=== PATIENT | male | born 1980 | race Hispanic/Latino ===

== ENCOUNTER 2019-10-30 23:24 | Emergency (ER) | payer SELFPAY ==
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
[2019-10-31] MEDS ORDERED: TETANUS & DIPHTHERIA TOX,ADULT 0.5 ML VIAL ONE (00:25)
[2019-10-31] MEDS ORDERED: NA CHLORIDE 0.9% 1,000 ML ONE ×2 (00:25→02:01)
[2019-10-31] MEDS ORDERED: CEFAZOLIN SODIUM 1 GM/VIAL ONE (00:25)
[2019-10-31 00:35] LABS: Absolute Lymphocytes (CBC) 2.5 K/uL (0.7-4.9); Basophils % 1.1 % (0-1.3); Lymphocytes % 21.2 % (15.3-44.8); MPV 8.8 fL (7.6-11.3); RBC Red Blood Cell Count 4.91 M/uL (4.33-5.43)
--- NOTE | 2019-10-31 00:48 | EDPHYS ---
Physician Documentation [facility] Name: Nomi Moy Age: 39 yrs Sex: Male : 1980 Arrival Date: 10/30/2019 Time: 23:25 Bed 3 Private MD: ED Physician Luis Giles HPI: 10/29 23:50 This 39 yrs old Male presents to ER via Ambulatory with complaints of cp Laceration To Arm. 23:50 The patient or guardian reports a laceration, irregular. Context: [place] 23:50 Onset: The symptoms/episode began/occurred just prior to arrival. Associated signs and cp symptoms: Pertinent negatives: cyanosis distally, decreased sensation distally, numbness distally. Historical: - Allergies: 23:39 No Known Allergies; ll1 - PMHx: 23:39 Hypertension; ll1 - PSHx: 23:39 Cholecystectomy; ll1 - Immunization history:: Last tetanus immunization: unknown. - Social history:: Smoking status: Patient reports the use of cigarette tobacco products, smokes one pack cigarettes per day. Patient uses alcohol, only on a social basis. Patient/guardian denies using street drugs. ROS: 23:55 Constitutional: Negative for body aches, chills, fever. cp 23:55 Cardiovascular: Negative for chest pain, palpitations. 23:55 Respiratory: Negative for cough, shortness of breath, wheezing. 23:55 Abdomen/GI: Negative for abdominal pain. 23:55 Skin: Positive for laceration(s), of the volar and radial side of left wrist. 23:55 Neuro: Negative for numbness, tingling, weakness. 23:55 All other systems are negative. Exam: 23:59 Constitutional: The patient appears in no acute distress, alert, awake, well developed, cp well nourished. 23:59 Head/Face: Normocephalic, atraumatic. cp 23:59 Chest/axilla: Inspection: normal. 23:59 Cardiovascular: Rate: tachycardic, Rhythm: regular, Pulses: Pulses are 2+ in right radial artery and left radial artery. 23:59 Respiratory: the patient does not display signs of respiratory distress, Respirations: normal, no use of accessory muscles, no retractions. 23:59 Abdomen/GI: Inspection: abdomen appears normal. 23:59 Musculoskeletal/extremity: ROM: full active range of motion, in the left wrist and left hand, Sensation intact. 23:59 Skin: injury, laceration(s), the wound is approximately 2.5 cm(s), of the volar and radial side of left wrist, that can be described as clean, irregular, with moderate bleeding, bleeding appears pulsating and stops when pressure applied to proximal radial artery. 23:59 Neuro: Orientation: to person, place \T\ time. Mentation: is normal. Vital Signs: 23:36 BP 170 / 101; Pulse 102; Resp 18; Temp 98.0; Pulse Ox 98% ; Pain 7/10; ll1 10/30 00:18 Weight 93.44 kg; mw2 00:30 BP 153 / 100; Pulse 82; Resp 16; Pulse Ox 97% on R/A; jb4 01:42 BP 154 / 98; Pulse 79; Resp 16; Pulse Ox 96% on R/A; jb4 MDM: 18 23:43 Patient medically screened. 10/30 00:20 Differential diagnosis: open fracture, closed fracture, contusion, radial artery cp laceration. 00:45 Data reviewed: vital signs, nurses notes, I have discussed the patient's presentation/case with the attending Emergency Department Physician; and as a result, I will transfer patient. 00:50 Physician consultation: was contacted at 00:35, regarding regarding transfer, to [facility]. patient's condition, accepting physician will be DR Buckner. 10/30 00:15 Order name: CBC with Diff; Complete Time: 01:49 10/30 00:15 Order name: BMP; Complete Time: 01:49 cp 10/30 00:07 Order name: XRAY Wrist LEFT 3 view 10/30 00:32 Order name: Type And Screen 10/30 00:32 Order name: PT-INR; Complete Time: 01:49 cp 10/30 00:07 Order name: IV; Complete Time: 00:30 cp 10/30 00:38 Order name: NPO; Complete Time: 00:43 cp Administered Medications: 00:25 Drug: Ancef 1 grams Route: IVPB; Site: right forearm; jb4 00:28 Follow up: Response: No adverse reaction; IV Status: Completed infusion jb4 00:25 Drug: NS 0.9% 1000 ml Route: IV; Rate: 1 bolus; Site: right forearm; jb4 01:15 Follow up: Response: No adverse reaction; IV Status: Completed infusion; IV Intake: jb4 1000ml 00:30 Drug: Tetanus-Diphtheria Toxoid Adult 0.5 ml {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 Exp: rv 05/28/2021. Lot #: [id number]. } Route: IM; Site: right deltoid; 01:00 Follow up: Response: No adverse reaction jb4 00:44 Not Given (Patient Refused): morphine 4 mg IVP once; RASS on ADMIN: Combtv4, Very jb4 Agttd3, Agttd2, Rstlss1, AlertClm0, Drwsy-1, Lt Sdtn-2, Mod Sdtn-3, Dp Sdtn-4, UnArsble-5 01:55 Drug: NS 0.9% 1000 ml Route: IV; Rate: 1 bolus; Site: right forearm; jb4 02:03 Follow up: Response: No adverse reaction; IV Status: Infusion continued upon transfer jb4 Disposition: 01:00 Chart complete. cp 06:16 Co-signature as Attending Physician, Luis Giles MD. 7 Disposition: 10/31/19 00:47 Transfer ordered to [facility]. Diagnosis are Laceration without foreign body of left wrist, Laceration of radial artery at wrist and hand level of left arm. - Reason for transfer: Higher level of care. - Accepting physician is DR Buckner. - Condition is Stable. - Problem is new. - Symptoms have improved. Signatures: Dispatcher [employer] EDMS Elvin Ordaz PA PA cp Bryson, James RN RN jb4 Arjun Ash RN RN rv Lewis, Lynsay RN ZAKIYA 1 Luis Giles MD MD 7 Corrections: (The following items were deleted from the chart) 02:03 00:47 10/31/2019 00:47 Transfer ordered to [facility]. Diagnosis is jb4 Laceration without foreign body of left wrist; Laceration of radial artery at wrist and hand level of left arm. Reason for transfer: Higher level of care. Accepting physician is DR Buckner. Condition is Stable. Problem is new. Symptoms have improved. lliy 18:19 00:50 Physician consultation: was contacted at 00:35, regarding regarding transfer, to lily B[facility]. patient's condition, accepting physician will be lily OROZCO
--- NOTE | 2019-10-31 00:48 | ER ---
Nurse's Notes [facility] Name: Nomi Moy Age: 39 yrs Sex: Male : 1980 Arrival Date: 10/30/2019 Time: 23:25 Bed 3 Private MD: Diagnosis: Laceration without foreign body of left wrist;Laceration of radial artery at wrist and hand level of left arm Presentation: 10/29 23:36 Chief complaint: Patient states: Slipped on [place] 20 min [employer]. Laceration to left ll1 hand, bleeding continuous. Pressure dressing applied, bleeding slowed. PMS intact. Coronavirus screen: Patient denies a cough. Patient denies shortness of breath or difficulty breathing. Patient denies measured and/or subjective temperature greater than 100.4F prior to today's visit. Patient denies travel on a cruise ship or to a country the [facility] currently lists as an affected area. Patient denies contact with known and/or suspected case of COVID-19. Proceed with normal triage. Ebola Screen: Patient denies travel to an Ebola-affected area in the 21 days before illness onset. Complicating Factors: The patient fell landing on an outstretched hand. Initial Sepsis Screen: Does the patient meet any 2 criteria? HR > 90 bpm. No. Patient's initial sepsis screen is negative. Risk Assessment: Do you want to hurt yourself or someone else? Patient reports no desire to harm self or others. Onset of symptoms was October 30, 2019. 23:36 Method Of Arrival: Ambulatory ll1 23:36 Acuity: RADHA 3 ll1 Historical: - Allergies: 23:39 No Known Allergies; ll1 - PMHx: 23:39 Hypertension; ll1 - PSHx: 23:39 Cholecystectomy; ll1 - Immunization history:: Last tetanus immunization: unknown. - Social history:: Smoking status: Patient reports the use of cigarette tobacco products, smokes one pack cigarettes per day. Patient uses alcohol, only on a social basis. Patient/guardian denies using street drugs. Screenin:30 Abuse screen: Denies threats or abuse. Nutritional screening: No deficits noted. jb4 Tuberculosis screening: No symptoms or risk factors identified. Fall Risk None identified. Assessment: 23:30 General: Appears in no apparent distress. uncomfortable, Behavior is calm, cooperative, jb4 appropriate for age. Pain: Complains of pain in lateral aspect of left wrist Pain does not radiate. Pain currently is 7 out of 10 on a pain scale. Quality of pain is described as sharp. Neuro: Level of Consciousness is awake, alert, obeys commands, Oriented to person, place, time, situation. Cardiovascular: Patient's skin is warm and dry. Respiratory: Airway is patent Respiratory effort is even, unlabored, Respiratory pattern is regular, symmetrical. GI: No signs and/or symptoms were reported involving the gastrointestinal system. : No signs and/or symptoms were reported regarding the genitourinary system. EENT: No signs and/or symptoms were reported regarding the EENT system. Derm: Skin is dry, Skin is normal, Skin temperature is warm. Musculoskeletal: Circulation, motion, and sensation intact. Range of motion: intact in all extremities. Injury Description: Laceration sustained to palmar aspect of left wrist is 0.5 to 2.5 cm long, bleeding moderately, was sustained 30-60 minutes ago. is bleeding moderately a dressing was applied. 23:35 Reassessment: pt family called, requesting update on pt status, informed pt family that sg pt is being evaluated by the provider at this time to assess for type of bleeding and injury, pt family stated understanding. 10/30 00:30 Reassessment: Patient appears in no apparent distress at this time. Patient and/or jb4 family updated on plan of care and expected duration. Pain level reassessed. Patient is alert, oriented x 3, equal unlabored respirations, skin warm/dry/pink. Laceration continues to exhibit a moderate amount of pulsatile bleeding. 01:16 Reassessment: Report given to ZAKIYA Parekh at [facility]. jb4 01:56 Reassessment: Patient appears in no apparent distress at this time. Patient and/or jb4 family updated on plan of care and expected duration. Pain level reassessed. Patient is alert, oriented x 3, equal unlabored respirations, skin warm/dry/pink. PT transferred out of ED Via EMS. IV is patent and with NS 0.9 infusing freely. Pt has full range of motion of his left fingers and left hand. Denies numbness or tingling. Has strong engine oiler in the left wrist. Vital Signs: 10/29 23:36 BP 170 / 101; Pulse 102; Resp 18; Temp 98.0; Pulse Ox 98% ; Pain 7/10; ll1 10/30 00:18 Weight 93.44 kg; mw2 00:30 BP 153 / 100; Pulse 82; Resp 16; Pulse Ox 97% on R/A; jb4 01:42 BP 154 / 98; Pulse 79; Resp 16; Pulse Ox 96% on R/A; jb4 ED Course: 10/29 23:25 Patient arrived in ED. do 23:29 Elvin Ordaz PA is PHCP. cp 23:29 Luis Giles MD is Attending Physician. cp 23:30 Casa Lombardi, ZAKIYA is Primary Nurse. jb4 23:30 Patient has correct armband on for positive identification. Bed in low position. Call jb4 light in reach. Side rails up X 1. Pulse ox on. NIBP on. 23:38 Triage completed. ll1 23:39 Arm band placed on Patient placed in an exam room, on a stretcher. ll1 10/30 00:30 Initial lab(s) drawn, by me, sent to lab. Inserted saline lock: 18 gauge in right rv forearm, using aseptic technique. Blood collected. 01:05 XRAY Wrist LEFT 3 view In Process Unspecified. EDMS 01:59 No provider procedures requiring assistance completed. Patient transferred, IV remains jb4 in place. 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 Exp: rv 05/28/2021. Lot #: [id number]. } Route: IM; Site: right deltoid; 01:00 Follow up: Response: No adverse reaction jb4 00:44 Not Given (Patient Refused): morphine 4 mg IVP once; RASS on ADMIN: Combtv4, Very jb4 Agttd3, Agttd2, Rstlss1, AlertClm0, Drwsy-1, Lt Sdtn-2, Mod Sdtn-3, Dp Sdtn-4, UnArsble-5 01:55 Drug: NS 0.9% 1000 ml Route: IV; Rate: 1 bolus; Site: right forearm; jb4 02:03 Follow up: Response: No adverse reaction; IV Status: Infusion continued upon transfer jb4 Intake: 01:15 IV: 1000ml; Total: 1000ml. jb4 Outcome: 00:47 ER care complete, transfer ordered by MD. bautista 01:59 Transferred by ground EMS [facility] to [facility], Transfer form completed. jb4 X-rays sent w/ patient. 01:59 Condition: stable 01:59 Discharge instructions given to patient, Instructed on the need for transfer, Demonstrated understanding of instructions. 02:03 Patient left the ED. jb4 Signatures: Dispatcher [employer] EDMS Merlin Giles, RN RN Elvin Patel PA PA cp Ogletree, Danielle do Bryson, James RN RN jb4 Benito Alvarez 2 Arjun Ash RN RN rv Lewis, Lynsay, RN RN ll1 Corrections: (The following items were deleted from the chart) 00:59 00:30 Reassessment: Patient appears in no apparent distress at this time. Patient jb4 and/or family updated on plan of care and expected duration. Pain level reassessed. Patient is alert, oriented x 3, equal unlabored respirations, skin warm/dry/pink. Laceration is still oozing blood. Pressure bandage reaplied. jb4
[2019-10-31 00:53] LABS: BUN Blood Urea Nitrogen 11 mg/dL (7-18); Bicarbonate 22 mmol/L (21-32); Glucose Level 112 mg/dL (74-106); Potassium 3.5 mmol/L (3.5-5.1); Sodium Level 139 mmol/L (136-145)
[2019-10-31 01:08] LABS: Protime INR 1.08
--- NOTE | 2019-10-31 12:31 | RAD REPORT ---
EXAM DESCRIPTION: RAD - Wrist Left 3 View - 10/31/2019 1:05 am CLINICAL HISTORY: laceration Pain COMPARISON: No comparisons FINDINGS: Soft tissue swelling is present along the wrist region. No acute fracture or foreign body seen.
== END 2019-10-31 02:03 | disposition short-term general hospital (02) ==
LOC: ER 23:24
DX: S65.112A Laceration of radial artery at wrist and hand level of left arm, initial encounter (principal); W26.8XXA Contact with other sharp object(s), not elsewhere classified, initial encounter; Y93.9 Activity, unspecified; Y92.832 Beach as the place of occurrence of the external cause; I10 Essential (primary) hypertension; F17.210 Nicotine dependence, cigarettes, uncomplicated; Z23 Encounter for immunization
CPT/HCPCS: 36415; 80048; 85025; 85610; 86850; 86900; 86901; 90471; 90714; 96361; 96374; 99285; G0390; J0690; J7030

== ENCOUNTER 2024-04-16 15:07 | Emergency (ER) | payer OTHER ==
--- OUTSIDE RECORDS SUMMARY | 2024-04-16 15:09 | XMS REPORT | Continuity of Care Document ---
Author Name Unknown Address [address] [facility] [address] th[address] Address [address] [facility] [address] [place] [address] Care Team Providers Care Counter Control Operator Name Role Phone ZOHAIB ARAYA Primary Care Physician Unavailab YUMIKO Valentine Attending Clinician Unavailable Stephie Lua NP Attending Clinician Yumiko Carrillo NP Attending Clinician BRANDYN NICOLAS Attending Clinician Un available STEPHIE LUA Admitting Clinician Unavailable ELÍAS CORNELL Admitting Clinician Unavelia myers Payers Payer Name Policy Type Policy Number Effective Date Expirati on Date Source [facility] PPO/POS [id number] 2023 00:00:00 Problems Condition Name Condition Details Condition Category Status Onset Date Resolution Date Last Treatment Date Treating Clinician Comments Source Enterocoli tis Enterocoli tis Disease Active 11-20 00:00: 00 [facility] Allergies, Adverse Reactions, Alerts Allergy Name Allergy Type Status Severity Reaction(s) Onset Date Inactive Date Treating Clinician Comments Source NO KNOWN ALLERGIE S Drug Class Active [facility] Social History Social Habit Start Date Stop Date Quantity Comments Source Sexual orientation U [facility] Sex assigned at 1980 00:00:00 1980 00:00:00 [facility] Smoking Status Start Date Stop Date Source Tobacco smoking consumption unknown [facility] Medications Ordered Medication Name Filled Medication Name Start Date Stop Date Current Medication? Ordering Clinician Indication Dosage Frequency Signature (SIG) Comments Components Source dicyclomine (BENTYL) injection 20 mg 11-21 01:45: 00 11-21 01:00 :00 No 20mg 20 mg, Intramuscu lar, ONCE NOW, 1 dose, On Fri11/21/23 at 204, Routine [facility] diphenhydrA MINE:lidoca ine 2% viscous:maa lox 1:1:1 (FIRST-MOUT HWASH BLM) oral suspension 15 mL 11-21 01:00: 00 11-21 01:00 :00 No 15mL 15 mL, Oral, ONCE, 1 dose, On Fri11/21/23 at 1999, Routine [facility] iopamidol (ISOVUE 370-500 mL) injection 85 mL 11-21 00:00: 00 11-21 00:15 :00 No [id number] 85mL 85 mL, Intravenou s, ONCE, 1 dose, On Fri11/21/23 at 1915, Routine [facility] ondansetron (ZOFRAN (PF)) injection 4 mg 11-20 22:30: 00 11-20 23:05 :00 No 4mg 4 mg, Slow IV Push, ONCE, 1 dose, On Fri11/21/23 at 1730, [facility] famotidine (PEPCID (PF)) injection 20 mg 11-20 22:30: 00 11-20 23:05 :00 No 20mg 20 mg, Slow IV Push, ONCE, 1 dose, On Fri11/21/23 at 1730, [facility] dicyclomine 20 mg tablet 11-20 00:00: 00 Yes [id number] 20mg Take 1 tablet by mouth 4 (four) times daily as needed for Abdominal pain. [facility] metroNIDAZO LE 500 mg tablet 11-20 00:00: 00 Yes [id number] 500mg Take 1 tablet by mouth in the morning and 1 tablet in the evening. [facility] ciprofloxac in HCl 500 mg tablet 11-20 00:00: 00 11-28 04:59 :00 No [id number] 500mg Take 1 tablet by mouth in the morning and 1 tablet in the evening. Do all this for 7 days. [facility] Vital Signs Vital Name Observation Time Observation Value Comments S ource Systolic blood pressure 2023-11-22 02:00:00 117 mm[Hg] [facility] Diastolic blood pressure 2023-11-22 02:00:00 83 mm[Hg] [facility] Heart rate 2023-11-22 02:00:00 74 /min [facility] Body temperature 2023-11-22 02:00:00 37.44 Netta [facility] Respiratory rate 2023-11-22 02:00:00 24 /min [facility] Oxygen saturation in Arterial blood by Pulse oximetry 2023-11-22 02:00:00 96 /min [facility] Body height 2023-11-21 21:58:00 175.3 cm [facility] Body weight 2023-11-21 21:58:00 90.719 kg [facility] BMI 2023-11-21 21:58:00 29.53 kg/m2 [facility] Procedures Procedure Date / Time Performed Performing Clinicia n Source CT ABDOMEN PELVIS W CONTRAST 2023-11-22 00:07:55 Stephie Lua [facility] LIPASE 2023-11-21 23:04:00 Stephie Lua [facility] TROPONIN I 2023-11-21 23:04:00 Stephie Lua [facility] COMP. METABOLIC PANEL ([id number]) 2023-11-21 23:04:00 Stephie Lua [facility] CBC WITH DIFF 2023-11-21 23:04:00 Stephie Lua [facility] URINALYSIS 2023-11-21 23:04:00 Stephie Lua [facility] Encounters Start Date/Time End Date/Time Encounter Type Admission Type Attending Clinicians Care Facility Care Department Encounter ID Source 2023-11-21 17:01:00 2023-11-21 22:02:00 Emergency YUMIKO MYERS [facility] ERT [id number] [facility] 2023-11-21 17:01:00 2023-11-21 22:02:00 Emergency Stephie Lua Katherine [facility] [id number] [facility] 2019-10-31 01:46:00 2019-10-31 04:19:00 Emergency E BRANDYN NICOLAS [facility] [address] [facility] Results Test Description Test Time Test Comments Results Result Comments Source CT ABDOMEN PELVIS W CONTRAST 02:31:50 ORDERING PHYSICIAN:STEPHIE GRIMALDO CLINICAL INFORMATION: ? Abdominal abscess/infection suspected COMPARISON: None Technique: ? CT of the abdomen and pelvis was performed after theadministration of IV contrast. No p.o. contrast was used. Multiplanarreformats were also obtained. This study was performed according to ALARAprinciple for radiation dose reduction. Findings: There is no evidence of obstructive uropathy. No suspicious renalparenchymal abnormalities are seen. Liver shows evidence of fattyinfiltration. Gallbladder surgically absent. Spleen, adrenal glands, andpancreas show no evidence of gross abnormalities. There is no bowelobstruction. Appendix is normal. There is mild mucosal edema involving thedistal small bowel and proximal colon. No free intraperitoneal air or fluidare present. No pathologically enlarged lymph nodes are seen. There is a1.4 cm noncalcified pulmonary nodule seen posteriorly in the right lungbase. There are no suspicious focal osseous lesions. [facility] ([id number][facility]2023-11-21 23:33:38* Test Item Value Reference Range Interpretation Comme nts NA (test code = 1496545602) 139 mmol/L 135-145 K (test code = 6000734496) 3.9 mmol/L 3.5-5.0 CL (test code = 2158089045) 103 mmol/L 98-108 CO2 TOTAL (test code = 0427138440) 25 mmol/L 23-31 AGAP (test code = 2928774357) 11 2-16 BUN (test code = 8816623665) 13 mg/dL 7-23 GLUCOSE (test code = 3099222028) 126 mg/dL 70-110 H CREATININE (test code = 2160-0) 0.79 mg/dL 0.60-1.25 TOTAL BILI (test code = 2070442253) 0.8 mg/dL 0.1-1.1 CALCIUM (test code = 3667412485) 9.4 mg/dL 8.6-10.6 T PROTEIN (test code = 7763526767) 8.7 g/dL 6.3-8.2 H ALBUMIN (test code = 5422124942) 4.9 g/dL 3.5-5.0 ALK PHOS (test code = 3189739372) 81 U/L 34-122 ALTv (test code = 1742-6) 35 U/L 5-50 AST(SGOT) (test code = 0440367526) 30 U/L 13-40 eGFR (test code = 11698-8) 113.0 mL/min/1.73m2 CKD-EPI eGFR (2020). Assuming creatinine has been stable day-to-day for at least three months, the eGFR indicates Category G1 (>= 90 mL/min/1.73 m2) Lab Interpretation (test code = 47273-9) [facility]* Test Item Value Reference Range Interpretation Comme nts LIPASE (test code = 1842441234) 69 U/L 0-220 Lab Interpretation (test cod e = 09327-0) [facility] [id number] 23:22:52* Test Item Value Reference Range Interpretation Comme nts WBC (test code = 6690-2) 10.77 4.20-10.70 H RBC (test code = 789-8) 5.26 4.26-5.52 HGB (test code = 718-7) 16.7 g/dL 12.2-16.4 H HCT (test code = 4544-3) 48.3 % 38.4-49.3 MCV (test code = 787-2) 91.8 fL 81.7-95.6 MCH (test code = 785-6) 31.7 pg 26.1-32.7 MCHC (test code = 786-4) 34.6 g/dL 31.2-35.0 RDW-SD (test code = 77921-6) 42.0 fL 38.5-51.6 RDW-CV (test code = 788-0) 12.5 % 12.1-15.4 PLT (test code = 777-3) 243 150-328 MPV (test code = 06589-7) 9.9 fL 9.8-13.0 NRBC/100 WBC (test code = 9939819786) 0.0 0.0-10.0 NRBC x10^3 (test code = 9895677440) See_Comment [Automated messa ge] The system which generated this result transmitted reference range: 10*3/?L. The reference range was not used to interpret this result as normal/abnormal. GRAN MAT (NEUT) % (test code = 770-8) 78.5 % IMM GRAN % (test code = 8367746476) 0.40 % LYMPH % (test code = 736-9) 13.4 % MONO % (test code = 5905-5) 6.9 % EOS % (test code = 713-8) 0.5 % BASO % (test code = 706-2) 0.3 % GRAN MAT x10^3(ANC) (test code = 5616618163) 8.47 10*3/uL 1.99-6.95 H IMM GRAN x10^3 (test code = 5938990110) 0.04 10*3/uL 0.00-0.06 LYMPH x10^3 (test code = 731-0) 1.44 10*3/uL 1.09-3.23 MONO x10^3 (test code = 742-7) 0.74 10*3/uL 0.36-1.02 EOS x10^3 (test code = 711-2) 0.05 10*3/uL 0.06-0.53 L BASO x10^3 (test code = 704-7) 0.03 10*3/uL 0.01-0.09 Lab Interpretation (test code = 64371-1) Abnormal [facility]
--- NOTE | 2024-04-16 15:47 | RAD REPORT ---
Procedure: Chest Pa And Lat (2 Views) HISTORY: Cough COMPARISON: 2017 FINDINGS: The lungs appear clear of acute infiltrate. No significant pleural effusion noted. The heart is normal size. IMPRESSION: No acute abnormality is displayed.
--- NOTE | 2024-04-16 16:20 | EDPHYS ---
Physician Documentation [facility] Name: Nomi Moy Age: 43 yrs Sex: Male : 1980 Arrival Date: 04/16/2024 Time: 15:07 Bed 9 Private MD: ED Physician Elvin Carter HPI: 04/16 16:20 This 43 yrs old Male presents to ER via Ambulatory with complaints of dr5 Breathing Difficulty, SWALLOWED INSULATION. 16:20 The patient has shortness of breath while working. 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 Patient reports that he had a coughing fit that likely remove the insulation. Patient's only complaint is feeling funny in the back of his throat.. Historical: - Allergies: 15:23 No Known Allergies; db - PMHx: 15:23 Hypertension; Diabetes mellitus; db - Immunization history:: Adult Immunizations unknown. - Infectious Disease History:: Denies. - Social history:: Smoking status: Patient reports the use of cigarette tobacco products, smokes one pack cigarettes per day. ROS: 16:20 Constitutional: as per hpi dr5 Exam: 16:20 Constitutional: This is a well developed, well nourished patient who is awake, alert, dr5 and in no acute distress. Head/Face: Normocephalic, atraumatic. Eyes: Pupils equal round and reactive to light, extra-ocular motions intact. Lids and lashes normal. Conjunctiva and sclera are non-icteric and not injected. Cornea within normal limits. Periorbital areas with no swelling, redness, or edema. Neck: Trachea midline, no thyromegaly or masses palpated, and no cervical lymphadenopathy. Supple, full range of motion without nuchal rigidity, or vertebral point tenderness. No Meningismus. Cardiovascular: Regular rate and rhythm with a normal S1 and S2. Normal PMI, no JVD. No pulse deficits. Respiratory: Lungs have equal breath sounds bilaterally, clear to auscultation. No rales, rhonchi or wheezes noted. No increased work of breathing, no retractions or nasal flaring. Abdomen/GI: Soft, non-tender, non-distended Skin: Warm, dry with normal turgor. Normal color with no rashes, no lesions, and no evidence of cellulitis. MS/ Extremity: Pulses equal, no cyanosis. Neurovascular intact. Full, normal range of motion. Neuro: Awake and alert, GCS 15, oriented to person, place, time, and situation. Cranial nerves II-XII grossly intact. Motor strength 5/5 in all extremities. Sensory grossly intact. Cerebellar exam normal. Normal gait. 16:20 ENT: Posterior pharynx: Airway: normal, no evidence of obstruction, Tonsils: are normal in appearance, erythema, that is mild, Vital Signs: 15:20 BP 145 / 90; Pulse 102; Resp 18; Temp 98.1; Pulse Ox 96% ; Weight 97.52 kg; Height 5 db ft. 9 in. ; Pain 0/10; 16:29 BP 139 / 76; Pulse 92; Resp 18; Pulse Ox 97% on R/A; ld1 15:20 Body Mass Index 31.75 (97.52 kg, 175.26 cm) db 15:20 Pain Scale: Adult db MDM: 15:25 Medical Screening Exam initiated dr5 16:20 Differential diagnosis: Pneumonia, foreign body, pharyngitis. Antibiotic dr5 administration: Not indicated, the patient does not have an appreciated infiltrate. Data reviewed: vital signs, nurses notes. Historians other than the Patient: Spouse/Significant Other: Spouse. Care significantly affected by the following chronic conditions: Diabetes, Hypertension. Care significantly affected by the following Social Determinants of Health: Poor access to healthcare and/or lack of insurance, Poor access to transportation, Problems related to employment. Counseling: I had a detailed discussion with the patient and/or guardian regarding the historical points, exam findings, and any diagnostic results supporting the discharge/admit diagnosis, the presence of at least one elevated blood pressure reading (>120/80) during this emergency department visit, radiology results, the need for outpatient follow up, for definitive care, a family practitioner, to return to the emergency department if symptoms worsen or persist or if there are any questions or concerns that arise at home. ED course: Patient reports his pain has resolved and is feeling better on discharge. Recommended increasing hydration, alternating Tylenol Motrin as needed for pain and fever, Benadryl for itching. All questions answered. Will have patient follow-up with PCP. Return to ER if worsening conditions.. 01/03 15:23 Order name: Chest Pa And Lat (2 Views) XRAY; Complete Time: 15:50 dr5 04/16 15:23 Order name: EKG; Complete Time: 15:24 dr5 04/16 15:23 Order name: EKG - Nurse/Tech; Complete Time: 16:03 dr5 EC:01 Rate is 91 beats/min. Rhythm is regular. QRS [place] is Normal. ME interval is normal at dr5 170 msec. QRS interval is normal at 110 msec. QT interval is normal at 356 msec. Administered Medications: No medications were administered Disposition Summary: 04/16/24 16:20 Discharge Ordered Notes: Location: Home dr5 Condition: Stable dr5 Diagnosis - Acute pharyngitis, unspecified dr5 Followup: dr5 - With: Emergency Department - When: As needed - Reason: Worsening of condition Followup: dr5 - With: Private Physician - When: 1 - 2 days - Reason: Recheck today's complaints, Continuance of care, Re-evaluation by your physician Discharge Instructions: - Discharge Summary Sheet dr5 - Upper Respiratory Infection, Adult dr5 Forms: - Medication Reconciliation Form dr5 - Patient Portal Instructions dr5 - Leadership Thank You Letter dr5 Addendum: 04/20/2024 15:32 Co-signature as Attending Physician, Elvin Carter MD I agree with the assessment and c alvarez plan of care. Signatures: Dispatcher [employer] Elvin Mora MD MD cha Benton, Danielle, RN RN Kevin Herrmann, PLASMA TABLE OPERATOR-C PLASMA TABLE OPERATOR-Cdr5
--- NOTE | 2024-04-16 16:20 | ER ---
Nurse's Notes [facility] Name: Nomi Moy Age: 43 yrs Sex: Male : 1980 Arrival Date: 04/16/2024 Time: 15:07 Bed 9 Private MD: Diagnosis: Acute pharyngitis, unspecified Presentation: 04/16 15:22 Chief complaint: Patient states: FEELS LIKE INHALED AND SWALLOWED INSULATION WHILE IN db ATTIC. FEELS LIKE HAS DIFFICULTY BREATHING BECAUSE OF IT. Coronavirus screen: Client denies travel out of the [place] in the last 14 days. At this time, the client does not indicate any symptoms associated with coronavirus-19. Ebola Screen: Patient negative for fever greater than or equal to 101.5 degrees Fahrenheit, and additional compatible Ebola Virus Disease symptoms Patient denies exposure to infectious person. Patient denies travel to an Ebola-affected area in the 21 days before illness onset. No symptoms or risks identified at this time. Initial Sepsis Screen: Does the patient meet any 2 criteria? No. Patient's initial sepsis screen is negative. Does the patient have a suspected source of infection? No. Patient's initial sepsis screen is negative. Risk Assessment: Do you want to hurt yourself or someone else? Patient reports no desire to harm self or others. Onset of symptoms was April 16, 2024. 15:22 Method Of Arrival: Ambulatory db 15:22 Acuity: RADHA 3 db Triage Assessment: 15:23 General: Appears in no apparent distress. uncomfortable, Behavior is calm, cooperative. db Pain: Denies pain. Neuro: Level of Consciousness is awake, alert, obeys commands, Oriented to person, place, time. Respiratory: Reports shortness of breath Onset: The symptoms/episode began/occurred suddenly, the patient has mild shortness of breath. Historical: - Allergies: 15:23 No Known Allergies; db - PMHx: 15:23 Hypertension; Diabetes mellitus; db - Immunization history:: Adult Immunizations unknown. - Infectious Disease History:: Denies. - Social history:: Smoking status: Patient reports the use of cigarette tobacco products, smokes one pack cigarettes per day. Screenin:29 [facility] ED Fall Risk Assessment (Adult) History of falling in the last 3 months, ld1 including since admission No falls in past 3 months (0 pts) Confusion or Disorientation No (0 pts) Intoxicated or Sedated No (0 pts) Impaired Gait No (0 pts) Mobility Assist Device Used No (0 pt) Altered Elimination No (0 pt) Score/Fall Risk Level 0 - 2 = Low Risk Oriented to surroundings, Maintained a safe environment, Educated pt \T\ family on fall prevention, incl call for assistance when getting out of bed, Assessed \T\ reinforced patient's understanding of fall precautions, Provided non-skid footwear, Hourly rounding (assess needs \T\ fall precautionary measures) done, Used ambulatory aids as needed (educated on \T\ assisted with), Used gait belt as appropriate. Abuse screen: Denies threats or abuse. Denies injuries from another. Nutritional screening: No deficits noted. Tuberculosis screening: No symptoms or risk factors identified. Assessment: 15:50 General: Appears in no apparent distress. comfortable, Behavior is calm, cooperative, ld1 appropriate for age. Pain: Denies pain. Neuro: Level of Consciousness is awake, alert, obeys commands, Oriented to person, place, time, situation. Cardiovascular: Capillary refill < 3 seconds Patient's skin is warm and dry. Rhythm is sinus rhythm. Respiratory: Airway is patent Respiratory effort is even, unlabored, Breath sounds are clear bilaterally. GI: Abdomen is flat, non-distended. : No signs and/or symptoms were reported regarding the genitourinary system. EENT: No signs and/or symptoms were reported regarding the EENT system. Derm: No signs and/or symptoms reported regarding the dermatologic system. Musculoskeletal: No signs and/or symptoms reported regarding the musculoskeletal system. 16:29 Reassessment: Patient appears in no apparent distress at this time. No changes from ld1 previously documented assessment. Patient and/or family updated on plan of care and expected duration. Pain level reassessed. Patient is alert, oriented x 3, equal unlabored respirations, skin warm/dry/pink. Vital Signs: 15:20 BP 145 / 90; Pulse 102; Resp 18; Temp 98.1; Pulse Ox 96% ; Weight 97.52 kg; Height 5 db ft. 9 in. ; Pain 0/10; 16:29 BP 139 / 76; Pulse 92; Resp 18; Pulse Ox 97% on R/A; ld1 15:20 Body Mass Index 31.75 (97.52 kg, 175.26 cm) db 15:20 Pain Scale: Adult db ED Course: 15:11 Patient arrived in ED. sj2 15:12 Kevin Melo [facility]NP-C [facility]. [facility] 15:12 Elvin Carter MD is Attending Physician. dr5 15:23 Triage completed. db 15:23 Arm band placed on left wrist. db 15:40 Suha Red, RN is Primary Nurse. ld1 15:44 Chest Pa And Lat (2 Views) XRAY In Process Unspecified. EDMS 16:29 Patient has correct armband on for positive identification. Placed in gown. Bed in low ld1 position. Call light in reach. Side rails up X2. Pulse ox on. NIBP on. Door closed. Noise minimized. Warm blanket given. 16:29 No provider procedures requiring assistance completed. Patient did not have IV access ld1 during this emergency room visit. Administered Medications: No medications were administered Medication: 16:29 VIS not applicable for this client. ld1 Outcome: 16:20 Discharge ordered by . dr5 16:29 Discharged to home ambulatory, ld1 16:29 Condition: stable 16:29 Discharge instructions given to patient, Instructed on discharge instructions, follow up and referral plans. Demonstrated understanding of instructions, follow-up care, 16:30 Patient left the ED. ld1 Signatures: Dispatcher [employer] EDAR Suha Red, RN RN ld1 Leah Casanova RN RN db Jeanmarie Palma sj2 Kevin Melo FNP-C HEAD OF VISUAL MERCHANDISING-Cdr5
[2024-04-16 16:41] VITALS: TEMP 98.1
[2024-04-16 16:42] VITALS: BP 139/76; O2SAT 97
--- NOTE | 2024-04-26 11:20 | EKG ---
Test Date: 2024-04-16 Test Time: 16:01:19 Employment Representative: Manohar PETERSEN MEASUREMENT RESULTS: Intervals: Rate: 91 HI: 170 QRSD: 110 QT: 356 QTc: 437 [facility]: P: 60 HI: 170 QRS: -82 T: 24 INTERPRETIVE STATEMENTS: Normal sinus rhythm Right bundle branch block Left anterior fascicular block Bifascicular block Septal infarct, age undetermined Abnormal ECG Compared to ECG 09/11/2016 19:56:04 Right bundle-branch block now present Bifascicular block now present Myocardial infarct finding now present Incomplete right bundle-branch block no longer present Electronically Signed On 04-26-24 11:06:19 CASK MAKER by Danis Lucia
== END 2024-04-16 16:30 | disposition home or self-care (01) ==
LOC: ER 15:07
DX: J02.9 Acute pharyngitis, unspecified (principal); F17.210 Nicotine dependence, cigarettes, uncomplicated
CPT/HCPCS: 71046; 93005; 99283